=== PATIENT | male | born 1985 | race Caucasian/White ===

== ENCOUNTER 2016-12-17 10:15 | Day surgery (SDC) | payer OTHER ==
[2016-12-14 11:39] VITALS: BMI 25.2
--- NOTE | 2016-12-17 06:41 | HP ---
DATE OF ADMISSION: Chief complaint is nasopharyngeal mass. HISTORY OF PRESENT ILLNESS: This patient is a 31-year-old male who was referred to my office for evaluation of a mass in the posterior pharynx. The patient states that he was recently at his dentist office as they were doing an oral cancer screening by his dental hygienist she noticed that the patient had a large mass in the back of his throat. The patient states he was not aware of this. Denies any pain, any difficulty swallowing and he also denies any foreign body sensation. He states that he quit smoking approximately 2 years ago and has not used any tobacco products since that time. I congratulated him for stopping smoking. He denies any referred otalgia. At the time that he was seen in my office, clinical examination of the oropharynx revealed the patient had a large mass, which appeared to be originating in the nasopharynx. 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 It was recommended that the patient undergo a complete excision of a nasopharyngeal mass under general anesthesia. Past medical history reveals that he has allergies to AMOXICILLIN. He is not currently on any medications. Previous surgeries include bilateral myringotomy with insertion of ventilation tubes x2 and a tonsillectomy. He has no history of asthma, diabetes mellitus, or hypertension. The review of systems is completely unremarkable. PHYSICAL EXAMINATION: This patient is a 31-year-old male who is alert and cooperative. HEENT EXAMINATION: Patient is normocephalic. Tympanic membranes are normal. Middle ear spaces are free of any fluid or infection. Pupils are equal, round, and reactive to light and accommodation. Extraocular movements are within normal limits. Intranasal examination reveals moderate septal deviation with compensatory hypertrophy of inferior turbinates. Examination of oropharynx reveals patient has a well-circumscribed apparently pedunculated large mass, which is well rounded and smooth located in the posterior pharynx but appears to be originating from the nasopharynx. Palpation of the neck, cranial nerves 2 through 12 and the remainder of the head and neck exam are all within normal limits. CHEST/CARDIOVASCULAR: Both lung ellis are clear to percussion and auscultation. Patient is in regular sinus rhythm. S1 and S2 are present without any murmurs, S3s or S4s. Peripheral pulses are bilaterally symmetrical. ABDOMEN: There is no evidence of any masses, megaly or tenderness. The abdomen is soft. Skin is unremarkable. Musculoskeletal and neurological are within normal limits. RECTAL EXAM: The rectal exam is deferred at this time because the patient has this done on a regular basis at his family physician's office. The remainder of physical exam is unremarkable. IMPRESSION: Nasopharyngeal mass. PLAN: The patient is scheduled undergo excision of nasopharyngeal mass under general anesthesia in a.m. ATTENTION RNS IN THE PRESURGICAL AREA: I have not ordered any presurgical medications for this patient. I have also not ordered any presurgical prophylactic antibiotics for this patient. If any presurgical prophylactic antibiotics are sent to the presurgical area, they should be returned to the pharmacy and the patient's account should be credited appropriately. Again, I have not ordered any presurgical medications for this patient. I have explained the operation/procedure to the patient, including the risks, benefits, side effects, alternative therapies (including not receiving the proposed treatment or service), the likelihood of the patient achieving his/her goals, and potential recuperation problems for the procedure/sedation/analgesia, as well as any blood products, if indicated. I also explained to the patient the risks, benefits, and side effects of the alternatives, as well as the risks related to not receiving the proposed procedure, care treatment or services.
[~2016-12-17 10:15] MED LIST: DEXAMETHASONE SOD PHOSPHATE 10 MG/ML 1 ML VIAL IV ONE; HYDROmorphone 1 MG/ML 1 ML SYRINGE IVP PRN; LACTATED RINGERS 1,000 ML IV SCH; MIDAZOLAM 2 MG/2 ML VIAL IV PRN; ONDANSETRON 4 MG/2 ML VIAL IVP ONE; Pre Op ABX Message 1 EACH MISC MISCELLANE ONE; SCOPOLAMINE 1.5MG/72HR PATCH TRANSDERM ONE
[2016-12-17 11:19] VITALS: RESP 16
[2016-12-17] MEDS ORDERED: LIDOCAINE 1% 20 ML VIAL (10MG/ML) FOR IV START INTRADERMA ONE (11:30)
[2016-12-17] MEDS ORDERED: GLYCOPYRROLATE 0.2 MG/ML 2 ML VIAL ONE (11:37)
[2016-12-17] MEDS ORDERED: LIDOCAINE 1% INJ 10MG/ML (20 ML MDV) ONE (11:37)
[2016-12-17] MEDS ORDERED: DEXAMETHASONE SOD PHOS (MDV) 100 MG/10 ML VIAL ONE (11:37)
[2016-12-17] MEDS ORDERED: MIDAZOLAM 2 MG/2 ML VIAL ONE (11:37)
[2016-12-17] MEDS ORDERED: fentaNYL (PF) 50 MCG/ML 2 ML AMP ONE (11:37)
[2016-12-17] MEDS ORDERED: HYDROmorphone (PF) 1 MG/ML ONE (11:37)
[2016-12-17] MEDS ORDERED: SUCCINYLCHOLINE CHLORIDE 100 MG/5 ML SYR IV ONE (11:37)
[2016-12-17] MEDS ORDERED: KETOROLAC 30 MG/ML 1 ML VIAL ONE (11:37)
[2016-12-17] MEDS ORDERED: PROPOFOL 10 MG/ML 20 ML VIAL IV ONE (11:37)
[2016-12-17] MEDS ORDERED: OXYMETAZOLINE 0.05% NASL SPRAY 15 ML EA NOSTRIL ONE (11:55)
[2016-12-17 13:18] VITALS: TEMP 97.8
[2016-12-17 15:01] VITALS: BP 119/72; PULSE 101
--- NOTE | 2016-12-19 17:20 | OP ---
DATE OF SERVICE: 12/17/2016 SURGEON: NIK GONZALEZ MD [employer]: PREOPERATIVE DIAGNOSIS: Nasopharyngeal mass. POSTOPERATIVE DIAGNOSIS: Nasopharyngeal mass, final pathology pending. OPERATION: Complete excision of nasopharyngeal mass, approximate size was 3.5 x 1.5 cm. ANESTHESIA: General. COMPLICATIONS: None. ESTIMATED BLOOD LOSS: Less than 50 mL. OPERATIVE PROCEDURE: The patient was placed on the operating table in the supine position. After uneventful induction and endotracheal intubation, satisfactory general anesthesia was obtained. Next, the patient was draped in the usual and customary fashion, following which a #3 Osito-Mukul mouth gag was inserted into the oropharynx and expanded and subsequently was suspended on a Crawford stand. Next, a red rubber catheter was placed in the left naris and brought out through the oropharynx and clamped. Inspection of the nasopharynx using a laryngeal mirror revealed a mass, almost completely filling the nasopharynx, especially on the right side. It appeared to be recently originating from the right choanae. There also appeared to be several other masses associated with this main mass, which was approximately 3 to 3.5 x 1 to 1.5 cm in dimension. Therefore, using a nasal polypectomy snare, which was inserted in the right nares, and was passed into the nasopharynx, and using a Oswald forceps, the main mass was ensnared by pulling the mass through the polypectomy snare and subsequently the mass was excised/amputated completely. The specimen was placed in formalin. Once the main mass was removed, it was noted that there were additional masses, which appeared to be similar, but were smaller in size. These were removed in a similar fashion, again using the nasal polypectomy snare which had been inserted through the right naris, into the nasopharynx and with the assistance of the Oswald forceps to ensnare these other masses. These 2 were subsequently excised/amputated and these were went along with the main mass in formalin to the pathology department for examination. Next, hemostasis was obtained using a combination of suction cautery and also the hemostatic powder. The hemostatic power (HemaDerm) was instilled in the right naris, using the applicator in the usual fashion. A final check of the nasopharynx using the laryngeal mirror did not reveal any evidence of any active bleeding, and therefore at this point the procedure was terminated. There was no nasal packing inserted, however, a mustache dressing was applied and at this point, the procedure was terminated. There were no intraoperative complications. The patient tolerated the procedure well. Estimated blood loss was less than 50 mL. The patient was returned to the recovery room in satisfactory condition. Final pathology is pending.
== END 2016-12-17 15:17 | disposition home or self-care (01) ==
LOC: OR 10:15
PROVIDERS: ATTEND Otolaryngology
DX: J33.0 Polyp of nasal cavity (principal); R22.0 Localized swelling, mass and lump, head; Z87.891 Personal history of nicotine dependence; Z88.1 Allergy status to other antibiotic agents
CPT/HCPCS: 88305; 42808; J2250; J1100 ×2; J2405; J2001; J3010; J1885; J1170; J0330; J2704

== ENCOUNTER → 2016-12-28 | Outpatient (CLI) | payer OTHER ==
--- NOTE | 2016-12-28 09:18 | CT ---
EXAMINATION TYPE: CT sinus wo con DATE OF EXAM: 12/28/2016 8:06 AM COMPARISON: NONE HISTORY: Chronic sinusitis. Nasal polyposis. CT DLP: 550.40 mGycm. Automated Exposure Control for Dose Reduction was Utilized. TECHNIQUE: CT scan of the sinuses is performed without contrast, axial images are obtained, coronal r eformatted images are also reviewed. FINDINGS: There is mild mucosal thickening in the right maxillary sinus. There is large oval density measuring 2.2 cm on long axis on coronal image 20 felt to reflect mucous retention cyst or polyp in t he inferior right maxillary sinus. There is mild mucosal thickening anteriorly and inferiorly in the right frontal sinus. There is mild to moderate mucosal thickening with patchy opacification right sph enoid sinus. There is mild mucosal thickening anteriorly in the left sphenoid sinus. The ostiomeatal complex is patent bilaterally on the coronal images. There is some bilateral narrowing due to antral mucosal thickening, left greater than right. Visualized portion of mastoid air cells show no abnormal opacification. The globes are intact bilate rally. Visualized portion of brain parenchyma is unremarkable. IMPRESSION: Chronic paranasal sinus disease as noted above, mild acute sinusitis right sphenoid level cannot be excluded.
== END | disposition home or self-care (01) ==
LOC: RADCTMAIN 07:37
PROVIDERS: ATTEND Otolaryngology
DX: J32.9 Chronic sinusitis, unspecified (principal)
CPT/HCPCS: 70486

== ENCOUNTER → 2018-04-07 | Outpatient (CLI) | payer OTHER ==
--- NOTE | 2018-04-07 12:40 | US ---
EXAMINATION TYPE: US scrotum with doppler. Grayscale and color Doppler Duplex imaging performed of t kristian scrotum. DATE OF EXAM: 04/07/2018 COMPARISON: NONE CLINICAL HISTORY: N44.2 CYST. EXAM MEASUREMENTS: TESTICLES: Right Testicle: 4.6 x 2.3 x 3.3 cm Left Testicle: 4.3 x 2.5 x 3.2 cm EPIDIDYMIS HEAD: Right Epididymis: 0.9 cm Left Epididymis: 1.1 cm Doppler performed to assess for testicular vascularity; good bilateral color flow and waveforms are s een. There is no evidence of testicular torsion. Presence of hydroceles: no Presence of varicoceles: Serpiginous structures noted on the left compatible with possible underlyin g varicocele. IMPRESSION: Testicular echotexture is homogenous and symmetric. Small left varicocele suspected.
== END | disposition home or self-care (01) ==
LOC: RADUSWWP 09:42
PROVIDERS: ATTEND Urology
DX: N44.2 Benign cyst of testis (principal)
CPT/HCPCS: 76870; 93975